=== PATIENT | female | born 1985 | race Caucasian/White ===

== ENCOUNTER 2016-12-12 17:26 | Outpatient (CLI) | payer OTHER ==
--- NOTE | 2016-12-12 19:07 | DIAGNOSTIC IMAGING REPORT ---
PROCEDURE: XR ANKLE 1 OR 2 VIEWS - RIGHT INDICATION: SPRAIN OF UNSPECIFIED LIGAMENT OF RIGHT ANKLE TECHNIQUE: Two views right ankle COMPARISON: None. FINDINGS: Normal mineralization. No visible fractures. Grossly normal bony alignment. Mild lateral soft tissue swelling. No significant ankle joint effusion. Achilles tendon appears intact. No radiodense foreign bodies. IMPRESSION: 1. Mild lateral periarticular soft tissue swelling suggestive of sprain. 2. An addendum can be issued to this report if prior images become available.
== END 2016-12-12 23:00 | disposition home or self-care (01) ==
LOC: XR SRH 17:26
DX: M79.9 Soft tissue disorder, unspecified (principal)